=== PATIENT | female | born 1970 | race Caucasian/White ===

== ENCOUNTER 2024-04-30 22:16 | Inpatient (IN) | payer BC ==
[~2024-04-30] VITALS: Ht 160 cm; Wt 93.1 kg
[2024-04-30 23:15] LABS: BASOPHILS # (AUTO) 0.1 X10'3 (0-0.2); BASOPHILS % (AUTO) 0.7 % (0-1); EOSINOPHILS # (AUTO) 0.1 X10'3 (0-0.9); EOSINOPHILS % (AUTO) 1.3 % (0-6); HEMATOCRIT 38.3 % (35.0-45.0); HEMOGLOBIN 12.8 g/dl (12.0-16.0); LYMPHOCYTES # (AUTO) 1.7 X10'3 (1.1-4.8); LYMPHOCYTES % (AUTO) 23.1 % (21-51); MEAN CORPUSCULAR HEMOGLOBIN 28.9 PG (27.0-31.0); MEAN CORPUSCULAR HGB CONC 33.4 g/dL (33.0-36.5); MEAN CORPUSCULAR VOLUME 86.4 FL (78-98); MEAN PLATELET VOLUME 8.8 FL (7.4-10.4); MONOCYTES # (AUTO) 0.6 X10'3 (0-0.9); MONOCYTES % (AUTO) 7.5 % (2-12); NEUTROPHILS # (AUTO) 5.1 X10'3 (1.8-7.7); NEUTROPHILS % (AUTO) 67.4 % (42-75); PLATELET COUNT 269 X10'3 (140-440); RED BLOOD COUNT 4.43 X10'6 (4.20-5.60); RED CELL DISTRIBUTION WIDTH 14.7 % (11.5-14.5); WHITE BLOOD COUNT 7.5 X10'3 (4.5-11.0)
[2024-04-30 23:32] LABS: ALANINE AMINOTRANSFERASE 25 U/L (12-78); ALBUMIN 3.1 G/DL (3.4-5.0); ALBUMIN/GLOBULIN RATIO 0.9 (1.1-1.5); ALKALINE PHOSPHATASE 98 IU/L (46-116); ANION GAP 12 (8-16); ASPARTATE AMINO TRANSFERASE 17 U/L (10-37); BILIRUBIN,TOTAL 0.4 MG/DL (0.1-1.0); BLOOD UREA NITROGEN 6 MG/DL (7-18); BUN/CREATININE RATIO 6.6 (10.0-20.0); CALCIUM 8.1 MG/DL (8.5-10.1); CHLORIDE 101 MMOL/L (99-107); CREATININE 0.91 MG/DL (0.40-0.90); GLUCOSE 128 MG/DL (70-104); POTASSIUM 3.5 MMOL/L (3.5-5.1); SODIUM 135 MMOL/L (135-145); TOTAL CARBON DIOXIDE 21.6 MMOL/L (24-32); TOTAL PROTEIN 6.7 G/DL (6.4-8.2); eCRCL 57 ML/MIN; eGFR 64 ML/MIN
[2024-04-30 23:44] LABS: ACETAMINOPHEN 93.1 UG/ML (10-30)
[2024-05-01] MEDS ORDERED: magnesium hydroxide 30ml (MOM) UD suspension PO PRN (00:25)
[2024-05-01] MEDS ORDERED: HYDROcodone/acetaminophen 5mg/325mg tablet PO PRN (00:25)
[2024-05-01] MEDS ORDERED: acetaminophen 325mg tablet PO PRN (00:25)
[2024-05-01] MEDS ORDERED: ondansetron/PF 4mg/2ml inj IV PRN (00:25)
[2024-05-01] MEDS ORDERED: magnesium sulf-water 2g/50mL 50 ML IV PRN (00:25)
[2024-05-01] MEDS ORDERED: potassium Cl 40MEQ/1/2NS 520ml 520 ML IV PRN (00:25)
[2024-05-01] MEDS ORDERED: potassium Cl 20 mEq SR tablet PO PRN ×2 (00:25)
[2024-05-01] MEDS ORDERED: mag hydrox/Alum hydrox/simeth 30ml oral suspension PO PRN (00:25)
[2024-05-01] MEDS ORDERED: magnesium sulf-water 4G/100mL 100 ML IV PRN (00:25)
[2024-05-01] MEDS ORDERED: magnesium Cl slow-release 64mg tablet PO PRN (00:25)
[2024-05-01] MEDS: WATER IV SCH (00:32)
[2024-05-01] MEDS: DEXTROSE 5% IV SCH (00:32)
[2024-05-01] MEDS: ACETYLCYSTEINE IV SCH (00:32)
[2024-05-01] MEDS: normal saline 1000ml 1,000 ML IV SCH (00:40)
[2024-05-01 03:40] VITALS: BP 136/87; PULSE 100; RESP 18; TEMP 97.9; O2SAT 99
[2024-05-01] MEDS: K and/or MAG REPLACEMENT MC SCH (08:00)
[2024-05-01] MEDS: docusate sod 100mg capsule PO SCH (08:22)
[2024-05-01 10:26] LABS: URINE AMPHETAMINE SCREEN NEGATIVE (Neg); URINE BARBITUATE SCREEN NEGATIVE (Neg); URINE BENZODIAZEPINES SCREEN NEGATIVE (Neg); URINE CANNABINOID SCREEN POSITIVE (Neg); URINE COCAINE SCREEN NEGATIVE (Neg); URINE METHADONE SCREEN NEGATIVE (Neg); URINE OPIATE SCREEN NEGATIVE (Neg); URINE PHENCYCLIDINE SCREEN NEGATIVE (Neg)
[2024-05-01 10:47] LABS: POTASSIUM 3.8 MMOL/L (3.5-5.1)
[2024-05-01 10:56] LABS: BASOPHILS # (AUTO) 0.1 X10'3 (0-0.2); BASOPHILS % (AUTO) 0.6 % (0-1); EOSINOPHILS # (AUTO) 0.2 X10'3 (0-0.9); EOSINOPHILS % (AUTO) 1.6 % (0-6); HEMATOCRIT 38.7 % (35.0-45.0); HEMOGLOBIN 12.6 g/dl (12.0-16.0); LYMPHOCYTES # (AUTO) 1.5 X10'3 (1.1-4.8); MEAN CORPUSCULAR HEMOGLOBIN 28.5 PG (27.0-31.0); MEAN CORPUSCULAR HGB CONC 32.6 g/dL (33.0-36.5); MEAN CORPUSCULAR VOLUME 87.5 FL (78-98); MEAN PLATELET VOLUME 9.3 FL (7.4-10.4); MONOCYTES # (AUTO) 0.7 X10'3 (0-0.9); NEUTROPHILS % (AUTO) 78.8 % (42-75); PLATELET COUNT 289 X10'3 (140-440); RED BLOOD COUNT 4.42 X10'6 (4.20-5.60); WHITE BLOOD COUNT 11.5 X10'3 (4.5-11.0)
[2024-05-01 10:58] LABS: INR 1.1 INR; PROTHROMBIN TIME 11.8 SECONDS (9.0-12.0)
[2024-05-01] MEDS: LORazepam 2 mg/ml vial IV SCH (11:16)
[2024-05-01 15:59] LABS: INR 1.1 INR; PROTHROMBIN TIME 11.6 SECONDS (9.0-12.0)
[2024-05-01] MEDS: diphenhydrAMINE 25mg capsule PO ONE (23:50)
[2024-05-02 00:01] LABS: ALANINE AMINOTRANSFERASE 29 U/L (12-78); ALBUMIN 2.7 G/DL (3.4-5.0); ALBUMIN/GLOBULIN RATIO 0.8 (1.1-1.5); ALKALINE PHOSPHATASE 103 IU/L (46-116); ANION GAP 12 (8-16); ASPARTATE AMINO TRANSFERASE 14 U/L (10-37); BILIRUBIN,TOTAL 0.2 MG/DL (0.1-1.0); BLOOD UREA NITROGEN 13 MG/DL (7-18); BUN/CREATININE RATIO 14.3 (10.0-20.0); CALCIUM 8.6 MG/DL (8.5-10.1); CHLORIDE 107 MMOL/L (99-107); CREATININE 0.91 MG/DL (0.40-0.90); GLUCOSE 100 MG/DL (70-104); SODIUM 140 MMOL/L (135-145); TOTAL PROTEIN 6.1 G/DL (6.4-8.2); eCRCL 57 ML/MIN; eGFR 64 ML/MIN
[2024-05-02 04:09] VITALS: BP 136/87; PULSE 100; RESP 18; TEMP 97.9; O2SAT 99
[2024-05-02 06:00] VITALS: BP 127/78; PULSE 94; RESP 17; TEMP 98.7; O2SAT 96
[2024-05-02 07:25] LABS: BASOPHILS # (AUTO) 0.1 X10'3 (0-0.2); BASOPHILS % (AUTO) 1.1 % (0-1); EOSINOPHILS # (AUTO) 0.3 X10'3 (0-0.9); EOSINOPHILS % (AUTO) 4.3 % (0-6); HEMATOCRIT 36.4 % (35.0-45.0); HEMOGLOBIN 11.9 g/dl (12.0-16.0); LYMPHOCYTES # (AUTO) 1.5 X10'3 (1.1-4.8); LYMPHOCYTES % (AUTO) 21.5 % (21-51); MEAN CORPUSCULAR HEMOGLOBIN 28.5 PG (27.0-31.0); MEAN CORPUSCULAR HGB CONC 32.8 g/dL (33.0-36.5); MEAN PLATELET VOLUME 9.7 FL (7.4-10.4); MONOCYTES # (AUTO) 0.5 X10'3 (0-0.9); MONOCYTES % (AUTO) 6.5 % (2-12); NEUTROPHILS # (AUTO) 4.7 X10'3 (1.8-7.7); NEUTROPHILS % (AUTO) 66.6 % (42-75); PLATELET COUNT 264 X10'3 (140-440); RED BLOOD COUNT 4.19 X10'6 (4.20-5.60); RED CELL DISTRIBUTION WIDTH 15.3 % (11.5-14.5)
[2024-05-02 07:35] LABS: PROTHROMBIN TIME 10.9 SECONDS (9.0-12.0)
[2024-05-02 07:53] LABS: MAGNESIUM 1.8 MG/DL (1.5-2.4); POTASSIUM 3.7 MMOL/L (3.5-5.1)
[2024-05-02 07:55] LABS: ACETAMINOPHEN < 2.0 UG/ML (10-30)
[2024-05-02 08:00] VITALS: RESP 17; O2SAT 96
[2024-05-02 11:00] VITALS: BP 157/89; PULSE 105; RESP 17; TEMP 98; O2SAT 97
[2024-05-02] MEDS: nicotine 21mg patch - 24 hr TD SCH (14:32)
[2024-05-02 15:00] VITALS: BP 136/95; PULSE 100; RESP 16; TEMP 98.4; O2SAT 97
[2024-05-02 15:47] LABS: PROTHROMBIN TIME 10.7 SECONDS (9.0-12.0)
[2024-05-02] MEDS ORDERED: LINA72CA PO (17:37)
[2024-05-02] MEDS ORDERED: BUSP10TA11 PO (17:37)
[2024-05-02] MEDS ORDERED: LEVO50TA8 PO (17:37)
[2024-05-02] MEDS ORDERED: BACL10TA2 PO (17:37)
[2024-05-02] MEDS ORDERED: OMEP40CA21 PO (17:37)
[2024-05-02] MEDS ORDERED: GABA-535 PO (17:37)
[2024-05-02] MEDS ORDERED: ASPI-1265 PO (17:37)
[2024-05-02 20:00] VITALS: RESP 16; O2SAT 97
[2024-05-02] MEDS: HALLS - SOOTHE MENTHOL 1.8 MG cough drop LOZENGE MM PRN (22:32)
[2024-05-02] MEDS: morphine 2 MG/ML inj. syringe IV PRN (22:42)
[2024-05-03 02:00] VITALS: BP 151/95; PULSE 99; RESP 18; TEMP 98.6; O2SAT 99
[2024-05-03 07:59] LABS: BASOPHILS % (AUTO) 0.5 % (0-1); EOSINOPHILS # (AUTO) 0.3 X10'3 (0-0.9); HEMOGLOBIN 12.6 g/dl (12.0-16.0); LYMPHOCYTES # (AUTO) 1.4 X10'3 (1.1-4.8); MEAN CORPUSCULAR HEMOGLOBIN 29.1 PG (27.0-31.0); MEAN CORPUSCULAR HGB CONC 33.2 g/dL (33.0-36.5); MEAN CORPUSCULAR VOLUME 87.5 FL (78-98); MEAN PLATELET VOLUME 9.9 FL (7.4-10.4); MONOCYTES # (AUTO) 0.5 X10'3 (0-0.9); MONOCYTES % (AUTO) 6.3 % (2-12); NEUTROPHILS # (AUTO) 5.1 X10'3 (1.8-7.7); NEUTROPHILS % (AUTO) 70.2 % (42-75); PLATELET COUNT 294 X10'3 (140-440); RED BLOOD COUNT 4.34 X10'6 (4.20-5.60); WHITE BLOOD COUNT 7.2 X10'3 (4.5-11.0)
[2024-05-03 08:00] VITALS: RESP 17; O2SAT 98
[2024-05-03 08:41] VITALS: BP 154/89; PULSE 92; RESP 17; TEMP 97.8; O2SAT 99
[2024-05-03 08:45] LABS: MAGNESIUM 1.9 MG/DL (1.5-2.4); POTASSIUM 3.6 MMOL/L (3.5-5.1)
[2024-05-03 08:46] LABS: ACETAMINOPHEN < 2.0 UG/ML (10-30)
[2024-05-03] MEDS ORDERED: diphenhydrAMINE 25mg capsule PO PRN (09:10)
[2024-05-03] MEDS ORDERED: LEVO50TA PO (12:40)
[2024-05-03] MEDS ORDERED: LINA145C PO (12:40)
[2024-05-03] MEDS ORDERED: baclofen 10mg tablet PO SCH (13:00)
[2024-05-03] MEDS ORDERED: busPIRone 5mg tablet PO SCH (13:00)
[2024-05-03] MEDS ORDERED: gabapentin 400mg capsule PO SCH (13:00)
[2024-05-04] MEDS ORDERED: levoTHYROXINE 25mcg tablet PO SCH (07:00)
[2024-05-04] MEDS ORDERED: pantoprazole 40mg Tablet.DR PO SCH (08:00)
[2024-05-04] MEDS ORDERED: LINZESS 72MCG PO SCH (08:00)
[2024-05-04] MEDS ORDERED: aspirin 81mg tab.chew PO SCH (08:00)
== END 2024-05-03 10:30 | DRG 918 ==
LOC: ER 22:17 → ED HOLD 05-01 00:32 → PCU 3S 05-02 04:25
PROVIDERS: ADMIT Internal Medicine Critical Care Medicine; ATTEND Nurse Practitioner Family
DX: T39.1X2A Poisoning by 4-Aminophenol derivatives, intentional self-harm, initial encounter (principal); F17.200 Nicotine dependence, unspecified, uncomplicated; Z20.822 Contact with and (suspected) exposure to COVID-19; S61.512A Laceration without foreign body of left wrist, initial encounter; X58.XXXA Exposure to other specified factors, initial encounter; M79.7 Fibromyalgia; F31.9 Bipolar disorder, unspecified; E03.9 Hypothyroidism, unspecified; F41.9 Anxiety disorder, unspecified; Y92.89 Other specified places as the place of occurrence of the external cause; Z88.2 Allergy status to sulfonamides; Y93.89 Activity, other specified; Y99.8 Other external cause status
CPT/HCPCS: 36415; 80053; 80305; 80329; 83605; 83735; 84132; 85025; 85610; 87081; 87811; 93005; 97161; 97530; 99291; 99292; A6250; A6258; A6449; G0378; J0132; J2060; J2270; J7030; J7070; Q0163

== ENCOUNTER 2024-05-03 09:23 | Inpatient (IN) | payer BC ==
[~2024-05-03] VITALS: Ht 160 cm; Wt 87.2 kg
[~2024-05-03 09:23] MED LIST: ASPI-1265 PO; BACL10TA2 PO; BUSP10TA11 PO; GABA-535 PO; LEVO50TA8 PO; LINA72CA PO; OMEP40CA21 PO
[2024-05-03 10:33] VITALS: BP 152/98; PULSE 108; RESP 14; TEMP 98.2; O2SAT 97
[2024-05-03] MEDS ORDERED: LINA145C PO (12:40)
[2024-05-03] MEDS ORDERED: LEVO50TA PO (12:40)
[2024-05-03] MEDS ORDERED: mag hydrox/Alum hydrox/simeth 30ml oral suspension PO PRN (12:55)
[2024-05-03] MEDS ORDERED: magnesium hydroxide 30ml (MOM) UD suspension PO PRN (12:55)
[2024-05-03] MEDS ORDERED: loperamide 2mg capsule PO PRN (12:55)
[2024-05-03] MEDS: NICOTINE POLACRILEX 2 MG LOZENGE BC PRN (13:18)
[2024-05-03 20:00] VITALS: BP 158/96; PULSE 121; RESP 16; TEMP 98.4; O2SAT 99
[2024-05-03] MEDS: baclofen 10mg tablet PO SCH (20:10)
[2024-05-03] MEDS: risperiDONE 0.5mg tablet PO SCH (20:10)
[2024-05-03] MEDS: LORazepam 0.5 MG tablet PO PRN (20:10)
[2024-05-03] MEDS: amitriptyline 50mg tablet PO SCH (20:10)
[2024-05-03] MEDS: gabapentin 400mg capsule PO SCH (20:10)
[2024-05-03] MEDS ORDERED: busPIRone 5mg tablet PO SCH (21:00)
[2024-05-03] MEDS ORDERED: traZODone 50mg tablet PO PRN (21:10)
[2024-05-03] MEDS: docusate sod 100mg capsule PO ONE (21:30)
[2024-05-03] MEDS: traZODone 50mg tablet PO SCH (21:31)
[2024-05-04 07:30] VITALS: BP 130/90; PULSE 104; RESP 16; TEMP 98.6; O2SAT 97
[2024-05-04] MEDS: pantoprazole 40mg Tablet.DR PO SCH (07:56)
[2024-05-04] MEDS: aspirin 81mg tab.chew PO SCH (07:56)
[2024-05-04] MEDS: levoTHYROXINE 25mcg tablet PO SCH (07:57)
[2024-05-04] MEDS: acetaminophen 325mg tablet PO PRN (07:58)
[2024-05-04] MEDS: nicotine 21mg patch - 24 hr TD SCH (07:59)
[2024-05-04] MEDS: LINZESS 145 MCG PO SCH (08:00)
[2024-05-04 14:41] LABS: CHOL/HDL RATIO 3.8 (0.00-4.99); CHOLESTEROL 167 MG/DL (0-200); HDL CHOLESTEROL 44 MG/DL (35-60); LDL CHOLESTEROL 102 MG/DL (50-100)
[2024-05-04 14:42] LABS: TRIGLYCERIDES 106 MG/DL (20-135)
[2024-05-04 14:43] LABS: HEMOGLOBIN A1C 5.9 % (4.5-6.2)
[2024-05-04 19:00] VITALS: BP 152/98; PULSE 119; RESP 18; TEMP 98.4; O2SAT 98
[2024-05-04] MEDS: HYDROchlorothiazide 12.5mg capsule PO SCH (19:12)
[2024-05-04] MEDS: potassium Cl 20 mEq SR tablet PO SCH (19:16)
[2024-05-04] MEDS: divalproex 250mg tablet, delayed-release PO SCH (20:58)
[2024-05-04] MEDS: amitriptyline 50mg tablet PO SCH (20:59)
[2024-05-04] MEDS ORDERED: amitriptyline 50mg tablet PO SCH (21:00)
[2024-05-05 07:00] VITALS: BP 145/91; PULSE 115; RESP 16; TEMP 97.4; O2SAT 97
[2024-05-05] MEDS: acetaminophen 325mg tablet PO PRN (12:44)
[2024-05-05 19:00] VITALS: RESP 18; O2SAT 97
[2024-05-05 19:57] VITALS: BP 133/94; PULSE 113; RESP 18; TEMP 97.6; O2SAT 98
[2024-05-06 07:00] VITALS: BP 136/92; PULSE 102; RESP 16; TEMP 96.3; O2SAT 97
[2024-05-06] MEDS: divalproex 250mg tablet, delayed-release PO SCH (07:19)
[2024-05-06] MEDS ORDERED: LORazepam 0.5 MG tablet PO PRN (11:35)
[2024-05-06] MEDS: hydrOXYzine 25 MG tablet PO PRN (11:52)
[2024-05-06] MEDS ORDERED: docusate sod 100mg capsule PO PRN (15:50)
[2024-05-06 19:00] VITALS: RESP 16; O2SAT 98
[2024-05-06 19:14] VITALS: BP 137/91; PULSE 115; RESP 18; TEMP 96.4; O2SAT 97
[2024-05-06] MEDS: LORazepam 0.5 MG tablet PO PRN (19:31)
[2024-05-06] MEDS: propranolol 10mg tablet PO SCH (21:00)
[2024-05-06] MEDS: risperiDONE 0.5mg tablet PO SCH (21:09)
[2024-05-06] MEDS: psyllium seed 5.8 gm packet (sugar-free) PO SCH (21:10)
[2024-05-06] MEDS: nystatin 15 GM powder TP SCH (21:12)
[2024-05-06 21:32] VITALS: PULSE 104
[2024-05-07] MEDS: LIDOcaine 5% patch TP SCH (07:20)
[2024-05-07 07:28] VITALS: RESP 12; O2SAT 97
[2024-05-07 07:36] VITALS: BP 144/99; PULSE 100; RESP 12; TEMP 97.9; O2SAT 97
[2024-05-07 11:05] VITALS: BP 134/96; PULSE 87
[2024-05-07] MEDS ORDERED: POTA-197 PO (14:58)
[2024-05-07] MEDS ORDERED: AMIT50TA15 PO (14:58)
[2024-05-07] MEDS ORDERED: HYDROchlorothiazide tablet PO (14:58)
[2024-05-07] MEDS ORDERED: DIVA125C10 PO (14:58)
[2024-05-07] MEDS ORDERED: NYSPWD TP (14:58)
[2024-05-07] MEDS ORDERED: PROP10TA10 PO (14:58)
[2024-05-07] MEDS ORDERED: LIDO700A47 TP (14:58)
[2024-05-07] MEDS ORDERED: psyllium 5.8g sugar-free pkt PO (14:58)
[2024-05-07] MEDS ORDERED: RISP0.5T74 PO (14:58)
[2024-05-07] MEDS ORDERED: GABA-535 PO (14:58)
[2024-05-07] MEDS ORDERED: BAC10T PO (14:58)
[2024-05-07 19:00] VITALS: RESP 16; O2SAT 92
[2024-05-07 20:00] VITALS: BP 122/82; PULSE 87; RESP 16; TEMP 97.8; O2SAT 97
[2024-05-08 07:14] VITALS: RESP 16
[2024-05-08 07:30] VITALS: BP 131/96; PULSE 92; RESP 20; TEMP 98.2; O2SAT 98
== END 2024-05-08 10:30 | disposition home or self-care (01) | DRG 885 ==
LOC: ADULT MH 10:33 → UNDOADMIN 11:08 → ADULT MH 11:45
PROVIDERS: ADMIT Psychiatry & Neurology Psychiatry; ATTEND Psychiatry & Neurology Psychiatry
PROC: GZHZZZZ Group Psychotherapy (ICD-10-PCS; principal; 2024-05-03)
PROC: GZ51ZZZ Individual Psychotherapy, Behavioral (ICD-10-PCS; 2024-05-03)
DX: F31.5 Bipolar disorder, current episode depressed, severe, with psychotic features (principal); F17.210 Nicotine dependence, cigarettes, uncomplicated; F90.9 Attention-deficit hyperactivity disorder, unspecified type; E03.9 Hypothyroidism, unspecified; I10 Essential (primary) hypertension; K21.9 Gastro-esophageal reflux disease without esophagitis; K58.1 Irritable bowel syndrome with constipation; M79.7 Fibromyalgia; G89.29 Other chronic pain; M54.59 Other low back pain; B35.6 Tinea cruris; F41.9 Anxiety disorder, unspecified; G47.9 Sleep disorder, unspecified; G62.9 Polyneuropathy, unspecified; Z88.2 Allergy status to sulfonamides; Z88.8 Allergy status to other drugs, medicaments and biological substances
CPT/HCPCS: 36415; 80061; 83036; 84443; 87081; 99285; Q0177